=== PATIENT | male | born 1985 | race Caucasian/White ===

== ENCOUNTER 2023-11-02 07:30 | Outpatient (RCR) | payer OTHER, SELFPAY | END 2023-11-02 09:02 | disposition home or self-care (01) | PROVIDERS: PCP Surgery; Visit Provider Surgery | DX: M79.641 Pain in right hand (principal); G89.29 Other chronic pain; M25.641 Stiffness of right hand, not elsewhere classified; Z51.89 Encounter for other specified aftercare | CPT/HCPCS: 97110; 97165; X5282 ==